=== PATIENT | female | born 1940 | race Caucasian/White ===

== ENCOUNTER → 2017-04-13 | Outpatient (CLI) | payer MEDICARE | END | disposition home or self-care (01) | LOC: CFH 14:38 | PROVIDERS: ATTEND Nurse Practitioner Primary Care | DX: R59.0 Localized enlarged lymph nodes (principal); Z85.3 Personal history of malignant neoplasm of breast; Z90.12 Acquired absence of left breast and nipple ==

== ENCOUNTER 2019-07-31 14:16 | Outpatient (CLI) | payer MEDICARE ==
[~2019-07-31 14:16] MED LIST: BUPR-173 PO; CHOL500062 PO; DENO60DI INJ; ESTR10TA PO; FLAX1000 PO; HERB1CAP PO; LACT1TAB13 PO; LANS30TA6 PO; LUTE20TA PO; MINO2.5T PO; MULT-257 PO; MULT-717 PO; NEBI2.5T2 PO; PSYL0.5215 PO; SERT100T PO; UBID300C PO; WARF5TAB PO; ZOLP10TA PO
== END 2019-07-31 23:59 | disposition home or self-care (01) ==
LOC: CFH 14:16
PROVIDERS: ATTEND Family Medicine
DX: N64.89 Other specified disorders of breast (principal); Z85.3 Personal history of malignant neoplasm of breast
CPT/HCPCS: 76642; 77065; G0279; 77063

== ENCOUNTER → 2020-08-24 | Outpatient (CLI) | payer MEDICARE ==
[~2020-08-24] MED LIST changes: -WARF5TAB PO; +WARF5TAB2 PO
== END | disposition home or self-care (01) ==
LOC: CFH 15:16
PROVIDERS: ATTEND Internal Medicine Hematology & Oncology
DX: Z12.31 Encounter for screening mammogram for malignant neoplasm of breast (principal)
CPT/HCPCS: 77063; 77067

== ENCOUNTER → 2020-09-25 | Outpatient (CLI) | payer MEDICARE | END | disposition home or self-care (01) | LOC: CFH 16:16 | PROVIDERS: ATTEND Physician Assistant Medical | DX: I08.3 Combined rheumatic disorders of mitral, aortic and tricuspid valves (principal); I10 Essential (primary) hypertension; R06.00 Dyspnea, unspecified | CPT/HCPCS: 93306 ==

== ENCOUNTER 2021-02-19 00:30 | Emergency (ER) | payer MEDICARE ==
[~2021-02-19] VITALS: Ht 170.2 cm; Wt 67.0 kg
[2021-02-19] MEDS ORDERED: KETOROLAC 30 MG/1 ML ONE (01:22)
[2021-02-19] MEDS ORDERED: DIAZEPAM 5 MG TABLET ONE ×2 (01:22→04:28)
[2021-02-19] MEDS ORDERED: KETOROLAC 30 MG/1 ML IM ONE (01:30)
[2021-02-19] MEDS ORDERED: DIAZEPAM 5 MG TABLET PO ONE ×2 (01:30→04:00)
--- NOTE | 2021-02-19 02:07 | NUR ---
Waiting for rad read and dispo, NAD, RR equal and unlabored.
[2021-02-19 05:46] VITALS: BP 113/68
[2021-02-19] MEDS ORDERED: LIDODERM 5% PATCH TD ONE ×2 (06:12→06:30)
== END 2021-02-19 06:29 | disposition home or self-care (01) ==
LOC: ED 01:00
DX: S39.012A Strain of muscle, fascia and tendon of lower back, initial encounter (principal); Z85.3 Personal history of malignant neoplasm of breast; W01.0XXA Fall on same level from slipping, tripping and stumbling without subsequent striking against object, initial encounter; Y93.89 Activity, other specified; Y92.009 Unspecified place in unspecified non-institutional (private) residence as the place of occurrence of the external cause; Y99.8 Other external cause status
CPT/HCPCS: 72110; 72190; 72192; 96372; 99285; J1885

== ENCOUNTER 2021-02-26 15:31 | Inpatient (IN) | payer MEDICARE ==
[~2021-02-26] VITALS: Ht 172.7 cm; Wt 64.0 kg
--- NOTE | 2021-02-26 16:45 | NUR ---
task RN note: pt presents to ED following glf 02/17. pt c/o midline lower back pain and left hip pain following fall. pt has 3/5 strength to all extremities, no focal neuro deficits. no drift, pupils equal and reactive bilaterally. pt has midline neck pain, states this is chronic, JAISON Purvis and BEN Espinoza notified, no further orders received. pt is drowsy, but becomes alert to voice and is anxious upon awakening. states she took 2mg xanax earlier today, EDERIBERTO and BEN aware, pt is claustraphobic and requesting xanax prior to MRI. JAISON Purvis notified, JAISON ok'd 0.5 mg PO xanax prior to MRI. pt taken to MRI at this time, pre mri screen performed by tech. family at bedside. report to primary RN Perri.
--- NOTE | 2021-02-26 16:50 | NUR ---
PT TAKEN TO MRI IN STABLE CONDITION.
[2021-02-26] MEDS ORDERED: LORazepam 2 MG/ML, 1ML ONE (17:42)
--- NOTE | 2021-02-26 17:59 | NUR ---
PIV INTITIATED AND PT MEDICATED PER MAR IN MRI. Addendum: 02/26/21 at 1815 by BNICHOLS PT PLACED ON 2L NC IN MRI AFTER RECEIVING MEDICATION PER MAR.
[2021-02-26] MEDS ORDERED: LORazepam 2 MG/ML, 1ML IVPush ONE (18:00)
--- NOTE | 2021-02-26 18:15 | NUR ---
PT REMAINS IN MRI. UNABLE TO OBTAIN HOURLY VS.
--- NOTE | 2021-02-26 18:40 | NUR ---
SPOKE W/ [facility] WHO STATES THEY WERE UNABLE TO GET HIP MRI PT CONSTANTLY KEPT MOVING. ERP DR. SLAUGHTER NOTIFIED.
--- NOTE | 2021-02-26 18:43 | NUR ---
PT RESTING ON GURNEY. NADN. CABALLERO.
--- NOTE | 2021-02-26 19:14 | NUR ---
PER ERP DR. SLAUGHTER GIVE PT FENTANYL IV AND SEND PT FOR HIP MRI.
--- NOTE | 2021-02-26 19:25 | NUR ---
SPOKE W/ NANCY BOARD OF EDUCATION SECRETARY IN REGARDS TO NEED FOR HIP MRI AND PLAN TO MEDICATE PT PER MAR PRIOR TO LEAVING. PER BOARD OF EDUCATION SECRETARY WILL CALL BACK W/ PLAN FOR PT TO GO TO MRI.
[2021-02-26] MEDS ORDERED: FENTANYL PF 100 MCG/2ML IVPush ONE (19:30)
[2021-02-26] MEDS ORDERED: FENTANYL PF 100 MCG/2ML ONE (20:13)
--- NOTE | 2021-02-26 20:21 | NUR ---
SURGICAL TERRITORY MANAGER AT BEDSIDE. PER JAISON AGUILAR HIP MRI NON EMERGENT. SURGICAL TERRITORY MANAGER RECOMMENDED TO PT AND FAMILY THAT MRI BE DONE TOMORROW. PER FAMILY WOULD PREFER TO DO MRI TOMORROW.
--- NOTE | 2021-02-26 20:24 | NUR ---
PT RESTING ON GURNEY. NADN. CABALLERO.
[2021-02-26] MEDS ORDERED: SODIUM CHLORIDE FLUSH 10ML SYR IVF ONE (20:30)
--- NOTE | 2021-02-26 20:59 | NUR ---
REPORT GIVEN TO SHAHEED MARI RN. ALL QUESTIONS ANSWERED. AWAITING PT TRANSPORT.
[2021-02-26 21:35] VITALS: BP 118/74
[2021-02-26] MEDS ORDERED: APIX5TAB PO (22:17)
[2021-02-27] MEDS ORDERED: OXYcodone/APAP 5/325MG TABLET PO PRN (00:30)
[2021-02-27] MEDS ORDERED: ONDANSETRON 2MG/ML, 2ML IVPush PRN (00:30)
[2021-02-27] MEDS ORDERED: KETOROLAC 30 MG/1 ML IV PRN (00:30)
[2021-02-27] MEDS ORDERED: LABETALOL 5MG/ML, 20ML IVPush PRN (00:30)
[2021-02-27] MEDS ORDERED: ZOLPIDEM 10MG TABLET PO PRN ×3 (00:30)
[2021-02-27] MEDS: PANTOPRAZOLE 40MG TABLET PO SCH ×3 (00:41→17:41)
[2021-02-27 01:42] VITALS: BP 136/82
[2021-02-27 06:45] VITALS: BP 120/72
[2021-02-27] MEDS: SENNA/DOCUSATE TABLET PO SCH (07:57)
[2021-02-27] MEDS: SERTRALINE 100MG TABLET PO SCH (07:57)
[2021-02-27] MEDS: MINOXIDIL 2.5 MG TABLET PO SCH (07:57)
[2021-02-27] MEDS: APIXABAN 5 MG TABLET PO SCH ×2 (07:57→20:32)
[2021-02-27] MEDS: NEBIVOLOL HCL 5 MG TABLET PO SCH (07:57)
[2021-02-27] MEDS: BUPROPION SR 100 MG TABLET PO SCH ×2 (09:14→20:32)
[2021-02-27] MEDS: ACETAMINOPHEN 325 MG TABLET PO PRN (09:28)
--- NOTE | 2021-02-27 12:17 | NUR ---
OT esa order received and acknowledged, chart reviewed. Esa attempted, however, pt had just received pain meds, and reports had not gotten any rest. Requested to come back this afternoon. Will reattempt as pt is able and appropriate. Addendum: 02/27/21 at 1218 by Petty Brandt OT Amended: Links added.
[2021-02-27] MEDS ORDERED: OXYcodone IR 5MG TABLET PO PRN (14:30)
[2021-02-27 19:37] VITALS: BP 116/65
[2021-02-27] MEDS: ZOLPIDEM 10MG TABLET PO PRN (20:32)
[2021-02-28 01:12] VITALS: BP 152/63
[2021-02-28 07:29] VITALS: BP 125/72
[2021-02-28] MEDS: PANTOPRAZOLE 40MG TABLET PO SCH ×2 (07:30→16:30)
[2021-02-28] MEDS: APIXABAN 5 MG TABLET PO SCH ×2 (08:23→20:34)
[2021-02-28] MEDS: SENNA/DOCUSATE TABLET PO SCH (08:24)
[2021-02-28] MEDS: NEBIVOLOL HCL 5 MG TABLET PO SCH (08:26)
[2021-02-28] MEDS: SERTRALINE 100MG TABLET PO SCH (08:27)
[2021-02-28] MEDS: BUPROPION SR 100 MG TABLET PO SCH ×2 (08:46→20:34)
[2021-02-28] MEDS: ACETAMINOPHEN 325 MG TABLET PO PRN ×2 (08:49→15:29)
[2021-02-28] MEDS: MINOXIDIL 2.5 MG TABLET PO SCH (09:00)
[2021-02-28] MEDS ORDERED: PANTOPRAZOLE 40MG TABLET PO SCH (09:00)
[2021-02-28] MEDS ORDERED: TEMPLATE NON-FORMULARY MED. (Lansoprazole** (Prevacid**) 30 MG) PO SCH (09:00)
[2021-02-28] MEDS ORDERED: HYDROcodone/APAP 5/325 TABLET PO PRN (10:00)
[2021-02-28] MEDS: CYCLOBENZAPRINE 10 MG TABLET PO PRN ×2 (10:22→18:09)
[2021-02-28 10:49] LABS: ANION GAP 7 mmol/L (5-15); CALCIUM 9.3 mg/dL (8.5-10.1); CHLORIDE 104 mmol/L (98-107)
[2021-02-28 10:51] LABS: CREATININE 0.85 mg/dL (0.55-1.02)
[2021-02-28 11:12] LABS: BASOPHILS % (AUTO) 1 % (0-1); EOSINOPHILS % (AUTO) 1 % (1-7); LYMPHOCYTES % (AUTO) 51 % (22-44); MEAN CORPUSCULAR HGB CONC 34.1 g/dL (32.4-35.8); MONOCYTES % (AUTO) 11 % (2-9); NEUTROPHILS % (AUTO) 36 % (42-75); PLATELET COUNT 238 x10^3/uL (130-400); RED BLOOD COUNT 4.37 x10^6/uL (3.82-5.3); RED CELL DISTRIBUTION WIDTH 15.4 % (9.6-15.2)
[2021-02-28 11:17] LABS: HCT (SEDRATE) 37.2 % (34.6-47.8); INTERNATIONAL NORMALIZED RATIO 1.05 (0.93-1.1); PROTHROMBIN TIME 11.2 Seconds (9.6-11.5)
[2021-02-28 14:05] VITALS: BP 101/68
[2021-02-28 18:38] VITALS: BP 133/82
[2021-02-28] MEDS: ZOLPIDEM 10MG TABLET PO PRN (22:06)
[2021-03-01 00:03] VITALS: BP 151/72
[2021-03-01] MEDS: CYCLOBENZAPRINE 10 MG TABLET PO PRN ×3 (01:22→16:50)
[2021-03-01 06:40] VITALS: BP 125/71
[2021-03-01] MEDS: ACETAMINOPHEN 325 MG TABLET PO PRN ×2 (08:06→20:43)
[2021-03-01] MEDS: PANTOPRAZOLE 40MG TABLET PO SCH ×2 (08:06→16:50)
[2021-03-01] MEDS: NEBIVOLOL HCL 5 MG TABLET PO SCH (08:07)
[2021-03-01] MEDS: APIXABAN 5 MG TABLET PO SCH (08:07)
[2021-03-01] MEDS: SENNA/DOCUSATE TABLET PO SCH (08:08)
[2021-03-01] MEDS: SERTRALINE 100MG TABLET PO SCH (08:08)
[2021-03-01] MEDS: MINOXIDIL 2.5 MG TABLET PO SCH (08:11)
[2021-03-01] MEDS: BUPROPION SR 100 MG TABLET PO SCH (08:14)
[2021-03-01] MEDS ORDERED: HYDROmorphone 1 MG/ML, 1ML INJ IV ONE (13:30)
[2021-03-01] MEDS ORDERED: HYDROmorphone 1 MG/ML, 1ML INJ ONE (13:35)
[2021-03-01 14:02] VITALS: BP 126/75
[2021-03-01 18:17] VITALS: BP 103/64
[2021-03-01] MEDS: BUPROPION SR 150 MG TABLET PO SCH (20:26)
[2021-03-01] MEDS: ZOLPIDEM 10MG TABLET PO PRN ×2 (20:29→22:03)
[2021-03-01] MEDS: HYDROmorphone 1 MG/ML, 1ML INJ IV PRN (22:03)
[2021-03-02 00:10] VITALS: BP 114/66
[2021-03-02] MEDS: HYDROmorphone 1 MG/ML, 1ML INJ IV PRN ×5 (02:50→20:53)
[2021-03-02 07:50] VITALS: BP 104/60
[2021-03-02] MEDS: PANTOPRAZOLE 40MG TABLET PO SCH ×2 (08:22→16:44)
[2021-03-02] MEDS: NEBIVOLOL HCL 5 MG TABLET PO SCH (08:23)
[2021-03-02] MEDS: SENNA/DOCUSATE TABLET PO SCH (08:23)
[2021-03-02 12:05] VITALS: BP 123/68
[2021-03-02] MEDS: ACETAMINOPHEN 325 MG TABLET PO PRN (14:06)
[2021-03-02 19:46] VITALS: BP 126/74
[2021-03-02] MEDS: CYCLOBENZAPRINE 10 MG TABLET PO PRN (19:54)
[2021-03-02] MEDS: SERTRALINE 100MG TABLET PO SCH (19:54)
[2021-03-02] MEDS: BUPROPION SR 150 MG TABLET PO SCH (19:54)
[2021-03-02] MEDS: ZOLPIDEM 10MG TABLET PO PRN (21:04)
[2021-03-03] MEDS: HYDROmorphone 1 MG/ML, 1ML INJ IV PRN ×4 (01:51→16:55)
[2021-03-03] MEDS: ACETAMINOPHEN 325 MG TABLET PO PRN ×3 (01:51→19:30)
[2021-03-03 01:59] VITALS: BP 121/66
[2021-03-03] MEDS: CYCLOBENZAPRINE 10 MG TABLET PO PRN ×3 (03:04→19:31)
[2021-03-03 05:24] LABS: BASOPHILS % (AUTO) 1 % (0-1); EOSINOPHILS % (AUTO) 2 % (1-7); LYMPHOCYTES % (AUTO) 49 % (22-44); MEAN CORPUSCULAR HEMOGLOBIN 28.9 pg (27.0-34.8); MEAN CORPUSCULAR HGB CONC 33.8 g/dL (32.4-35.8); MEAN PLATELET VOLUME 8.3 fL (7.4-10.4); MONOCYTES % (AUTO) 12 % (2-9); NEUTROPHILS % (AUTO) 36 % (42-75); PLATELET COUNT 278 x10^3/uL (130-400); RED BLOOD COUNT 4.32 x10^6/uL (3.82-5.3); RED CELL DISTRIBUTION WIDTH 15.6 % (9.6-15.2)
[2021-03-03 05:30] LABS: INTERNATIONAL NORMALIZED RATIO 1.01 (0.93-1.1); PROTHROMBIN TIME 10.8 Seconds (9.6-11.5)
[2021-03-03 05:33] LABS: ANION GAP 4 mmol/L (5-15); CHLORIDE 103 mmol/L (98-107)
[2021-03-03 05:36] LABS: CREATININE 0.74 mg/dL (0.55-1.02)
[2021-03-03 06:20] VITALS: BP 119/70
[2021-03-03] MEDS: PANTOPRAZOLE 40MG TABLET PO SCH ×2 (08:13→16:32)
[2021-03-03] MEDS: SENNA/DOCUSATE TABLET PO SCH (08:14)
[2021-03-03] MEDS: NEBIVOLOL HCL 5 MG TABLET PO SCH (08:14)
[2021-03-03] MEDS ORDERED: LORazepam 1MG TABLET PO ONE (09:30)
[2021-03-03 13:29] VITALS: BP 115/67
[2021-03-03] MEDS ORDERED: LIDOCAINE 1%, 20ML ONE ×2 (13:29→14:44)
[2021-03-03] MEDS ORDERED: FLUMAZENIL 0.1 MG/1 ML, 5ML ONE (13:58)
[2021-03-03] MEDS ORDERED: MIDAZOLAM 1 MG/ML, 5ML ONE (13:58)
[2021-03-03] MEDS ORDERED: NALOXONE 1 MG/ML, 2ML ONE (13:58)
[2021-03-03] MEDS ORDERED: FENTANYL PF 100 MCG/2ML ONE (13:58)
[2021-03-03 18:32] VITALS: BP 135/74
[2021-03-03] MEDS: SERTRALINE 100MG TABLET PO SCH (19:31)
[2021-03-03] MEDS: BUPROPION SR 150 MG TABLET PO SCH (19:31)
[2021-03-03] MEDS: ZOLPIDEM 10MG TABLET PO PRN (20:16)
[2021-03-04] MEDS: ACETAMINOPHEN 325 MG TABLET PO PRN ×2 (01:06→08:20)
[2021-03-04] MEDS: CYCLOBENZAPRINE 10 MG TABLET PO PRN ×2 (01:12→08:20)
[2021-03-04 01:32] VITALS: BP 126/69
[2021-03-04 05:28] LABS: ANION GAP 6 mmol/L (5-15); CALCIUM 9.1 mg/dL (8.5-10.1); CHLORIDE 102 mmol/L (98-107)
[2021-03-04 05:29] LABS: CREATININE 0.67 mg/dL (0.55-1.02)
[2021-03-04 07:17] VITALS: BP 106/69
[2021-03-04] MEDS: NEBIVOLOL HCL 5 MG TABLET PO SCH (08:06)
[2021-03-04] MEDS: PANTOPRAZOLE 40MG TABLET PO SCH (08:08)
[2021-03-04] MEDS: SENNA/DOCUSATE TABLET PO SCH (08:08)
[2021-03-04] MEDS ORDERED: APIXABAN 5 MG TABLET PO SCH (09:00)
[2021-03-04] MEDS: APIXABAN 5 MG TABLET PO SCH (10:36)
[2021-03-04] MEDS ORDERED: CYCL10TA2 PO (14:12)
[2021-03-04] MEDS ORDERED: TRAM50TA2 PO (14:12)
[2021-03-04 14:17] VITALS: BP 107/64
== END 2021-03-04 14:50 | disposition home health service (06) | DRG 516 ==
LOC: ED 15:52 → EDIP 20:14 → 3N 21:21
PROVIDERS: ADMIT Family Medicine; ATTEND Family Medicine
PROC: 0QS13ZZ Reposition Sacrum, Percutaneous Approach (ICD-10-PCS; principal; 2021-03-03)
PROC: 0QU13JZ Supplement Sacrum with Synthetic Substitute, Percutaneous Approach (ICD-10-PCS; 2021-03-03)
DX: S32.10XA Unspecified fracture of sacrum, initial encounter for closed fracture (principal); D68.59 Other primary thrombophilia; C91.10 Chronic lymphocytic leukemia of B-cell type not having achieved remission; E87.1 Hypo-osmolality and hyponatremia; M48.061 Spinal stenosis, lumbar region without neurogenic claudication; W01.0XXA Fall on same level from slipping, tripping and stumbling without subsequent striking against object, initial encounter; I10 Essential (primary) hypertension; M51.16 Intervertebral disc disorders with radiculopathy, lumbar region; K21.9 Gastro-esophageal reflux disease without esophagitis; Z20.822 Contact with and (suspected) exposure to COVID-19; F32.9 Major depressive disorder, single episode, unspecified; F51.04 Psychophysiologic insomnia; Z80.7 Family history of other malignant neoplasms of lymphoid, hematopoietic and related tissues; Z82.3 Family history of stroke; Z85.3 Personal history of malignant neoplasm of breast; Z79.899 Other long term (current) drug therapy; Z86.711 Personal history of pulmonary embolism; Z90.12 Acquired absence of left breast and nipple; Y93.89 Activity, other specified; Y92.89 Other specified places as the place of occurrence of the external cause; Y99.8 Other external cause status; Z88.1 Allergy status to other antibiotic agents; Z91.040 Latex allergy status
CPT/HCPCS: 0201T; 36415; 72148; 72192; 72195; 80048; 85025; 85610; 85651; 86140; 87635; 96374; 99156; 99157; 99285; G0378; J1170; J1885; J2250; J3010; C1713; J2060; J2310

== ENCOUNTER → 2021-05-25 | Outpatient (CLI) | payer MEDICARE ==
[~2021-05-25] MED LIST changes: +APIX5TAB PO; +CYCL10TA2 PO; +TRAM50TA2 PO
[2021-05-25 14:48] LABS: MEAN CORPUSCULAR HEMOGLOBIN 29.5 pg (27.0-34.8); MEAN CORPUSCULAR HGB CONC 33.6 g/dL (32.4-35.8); MEAN PLATELET VOLUME 8.8 fL (7.4-10.4); PLATELET COUNT 164 x10^3/uL (130-400); RED BLOOD COUNT 4.26 x10^6/uL (3.82-5.3); RED CELL DISTRIBUTION WIDTH 16.1 % (9.6-15.2)
[2021-05-25 14:59] LABS: ALANINE AMINOTRANSFERASE 20 U/L (12-78); ALBUMIN 3.8 g/dL (3.4-5.0); ANION GAP 4 mmol/L (5-15); CALCIUM 9.4 mg/dL (8.5-10.1); CHLORIDE 106 mmol/L (98-107); CHOLESTEROL, TOTAL 195 mg/dL (140-239); TRIGLYCERIDES 91 mg/dL (50-200); VLDL CHOLESTEROL 18 mg/dL (0-25)
[2021-05-25 15:01] LABS: ALKALINE PHOSPHATASE 83 U/L (45-117); BILIRUBIN,TOTAL 0.8 mg/dL (0.2-1.0); CHOL/HDL RATIO 2.7; HDL CHOL % 36 % (28-40); HDL CHOLESTEROL (DIRECT) 71 mg/dL (40-60); LDL CHOLESTEROL,CALCULATED 106 mg/dL (54-169); LDL/HDL RATIO 1.5 (0.5-3.0); TOTAL PROTEIN 7.1 g/dL (6.4-8.2)
[2021-05-25 15:40] LABS: <PLATELET ESTIMATE> ADEQUATE; <PLT MORPHOLOGY> NORMAL PLT MORPH; <RBC MORPHOLOGY> NORMAL; EOS#(MANUAL) 0.05 x10^3/uL (0.0-0.4); EOS% (MANUAL) 1 % (1-7); LYMPH#(MANUAL) 3.29 x10^3/uL (1-3.4); LYMPHS% (MANUAL) 61 % (22-44); MONOS#(MANUAL) 0.22 x10^3/uL (0.3-2.7); MONOS% (MANUAL) 4 % (2-9); REACTIVE LYMPHS # (MANUAL) 0.32 x10^3/uL (0-0); REACTIVE LYMPHS % (MANUAL) 6 % (0-0); SEG#(MANUAL) 1.51 x10^3/uL (1.8-6.8); SEGS% (MANUAL) 28 % (42-75)
== END | disposition home or self-care (01) ==
LOC: LAB 14:26
PROVIDERS: ATTEND Internal Medicine Cardiovascular Disease
DX: C91.10 Chronic lymphocytic leukemia of B-cell type not having achieved remission (principal); D68.51 Activated protein C resistance; I10 Essential (primary) hypertension; E55.9 Vitamin D deficiency, unspecified; F32.9 Major depressive disorder, single episode, unspecified; G47.33 Obstructive sleep apnea (adult) (pediatric); H81.13 Benign paroxysmal vertigo, bilateral; R00.2 Palpitations; J44.9 Chronic obstructive pulmonary disease, unspecified; M81.8 Other osteoporosis without current pathological fracture; N95.2 Postmenopausal atrophic vaginitis; R26.89 Other abnormalities of gait and mobility; I34.0 Nonrheumatic mitral (valve) insufficiency; Z79.01 Long term (current) use of anticoagulants; Z86.711 Personal history of pulmonary embolism
CPT/HCPCS: 36415; 80053; 80061; 82306; 83036; 85025